=== PATIENT | female | born 1995 | race Caucasian/White ===

== ENCOUNTER 2016-07-13 14:44 | Emergency (ER) | payer OTHER ==
--- NOTE | ~2016-07-13 | CT4 ---
[facility] A Service of [facility] RADIOLOGY TEXT RESULTS PATIENT: TOÑO SAAVEDRA LOCATION: SED : 95 UNIT #: [id number] AGE: [address]: Chandana Flor MD SEX: F ORDER DR: [id number] [place] [id number] E MR#: [id number] Acc #: [id number] NAME: TOOÑ SAAVEDRA : 1995 SEX: F STUDY DATE/TIME: 07/13/2016 17:00 UNIT: SED ROOM: STUDY DESCRIPTION: CT Abd and Pelv Wo Cont Attending Physician: Chandana Flor M.D. Ordering Physician: Chandana Flor M.D. Primary Care Physician: No Primary Care Physician MEDICAL IMAGING REPORT This report is preliminary unless electronic signature is present. EXAM CT abdomen and pelvis, 07/13/2016. INDICATIONS Blood in stool for 1 week. TECHNIQUE Axial images were obtained through the abdomen and pelvis without contrast. Multiplanar reformats were obtained. This CT exam was performed with one or more of the following radiation dose reduction techniques: automatic exposure control, adjustment of mA and/or kV according to patient size, and iterative reconstruction. COMPARISON No comparison. FINDINGS ABDOMEN: The lung bases are clear. Gallbladder is unremarkable. No renal or ureteral stones are seen. There is no hydronephrosis. The unenhanced solid organs are normal. Unopacified GI tract is normal. PELVIS: Urinary bladder is normal. There are no lower ureteral stones. There is sigmoid diverticulosis. The appendix is normal. The remainder of the unopacified GI tract is normal as well. There is a cystic lesion in the left adnexa versus nonopacified small bowel loop. It measures 2 cm short axis. There is some free fluid in the cul-de-sac which is probably physiologic. IMPRESSION 1. No renal or ureteral stones. No hydronephrosis. 2. Grossly normal unopacified GI tract including the appendix. Incidental note is made of mild sigmoid diverticulosis. 3. Free fluid in the cul-de-sac, probably physiologic. [facility] A Service of [facility] RADIOLOGY TEXT RESULTS PATIENT: TOÑO SAAVEDRA LOCATION: [facility] : 95 UNIT #: [id number] AGE: [address]: Chandana Flor MD SEX: F ORDER DR: 4. Left adnexal cyst versus unopacified bowel loop. Dictated by... Romel Mejias Jr., M.D. THIS IS AN ELECTRONICALLY VERIFIED REPORT Romel Mejias Jr., M.D. at 07/14/2016 2:07 PM LIMA/norman TD: 07/13/2016 20:52 JOB #: [id number] MEDICAL IMAGING REPORT Page 1 of 1
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
[~2016-07-13 14:44] MED LIST: KLONOPIN PO; NO MEDICATIONS; ZOLOFT PO
[2016-07-13 16:42] LABS: BASOPHIL% 0.8 % (0-2.5); EOSINOPHIL# 0.1 X10e3 (0-0.7); EOSINOPHIL% 1.8 % (0.0-7.0); HEMATOCRIT 42.9 % (35.0-45.0); LYMPHOCYTE# 1.1 X10e3 (1.0-3.5); LYMPHOCYTE% 20.7 % (17.0-45.0); MEAN CELL VOLUME 88.7 FL (83-96); MEAN CORPUSCULAR HEMOGLOBIN 31.1 PG (28-34); MEAN PLATELET VOLUME 11.4 FL (6.5-11.5); MONOCYTE# 0.3 X10e3 (0-1.0); MONOCYTE% 5.1 % (3.0-12.0); NEUTROPHIL# 3.9 X10e3 (1.5-7.1); NEUTROPHIL% 71.6 % (40-75); PLATELET COUNT 166 X10e3 (140-420); RED BLOOD COUNT 4.83 X10e (3.90-5.30); RED CELL DISTRIBUTION WIDTH 12.6 % (11.0-15.5); WHITE BLOOD COUNT 5.4 X10e3 (4.0-10.5)
[2016-07-13 16:43] LABS: DIFF IND NO
[2016-07-13 17:00] LABS: ALBUMIN SERUM 4.3 g/dL (3.5-5.0); BILIRUBIN, DIRECT 0.3 mg/dL (0.0-0.2); BILIRUBIN,INDIRECT 1.9 mg/dL (0.0-0.9); BILIRUBIN,TOTAL 2.2 mg/dL (0.2-2.0); BUN/CREATININE RATIO 18.75; CREATININE SERUM 0.8 mg/dL (0.6-1.4); GLOM FILT RATE Estimated 105.5 mL/min (>60); POTASSIUM 3.9 mmol/L (3.5-5.1)
== END 2016-07-13 18:00 | disposition home or self-care (01) ==
LOC: SED 14:44
PROVIDERS: Emergency Medicine
DX: K57.32 Diverticulitis of large intestine without perforation or abscess without bleeding (principal); S17.8XXA Crushing injury of other specified parts of neck, initial encounter; F17.210 Nicotine dependence, cigarettes, uncomplicated; F32.9 Major depressive disorder, single episode, unspecified; Z79.899 Other long term (current) drug therapy; X58.XXXA Exposure to other specified factors, initial encounter
CPT/HCPCS: 36415; 70490; 74176; 80048; 80076; 82270; 84703; 85025; 96361; 96374; 96375; 99284; C9113; J1885

== ENCOUNTER 2016-07-23 21:46 | Emergency (ER) | payer OTHER | END 2016-07-23 23:20 | disposition home or self-care (01) | LOC: CED 21:46 | DX: S09.90XA Unspecified injury of head, initial encounter (principal); F10.129 Alcohol abuse with intoxication, unspecified; F17.200 Nicotine dependence, unspecified, uncomplicated; Z79.899 Other long term (current) drug therapy; W18.30XA Fall on same level, unspecified, initial encounter; Y92.009 Unspecified place in unspecified non-institutional (private) residence as the place of occurrence of the external cause | CPT/HCPCS: 99283 ==

== ENCOUNTER 2016-07-23 23:40 | Emergency (ER) | payer OTHER ==
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
== END 2016-07-24 01:05 | disposition home or self-care (01) ==
LOC: SED 23:40
DX: S09.90XA Unspecified injury of head, initial encounter (principal); S01.01XA Laceration without foreign body of scalp, initial encounter; F10.129 Alcohol abuse with intoxication, unspecified; F41.9 Anxiety disorder, unspecified; F17.200 Nicotine dependence, unspecified, uncomplicated; Z79.899 Other long term (current) drug therapy; W18.30XA Fall on same level, unspecified, initial encounter; Y92.009 Unspecified place in unspecified non-institutional (private) residence as the place of occurrence of the external cause
CPT/HCPCS: 12001; 70450; 90715; 99284

== ENCOUNTER 2016-07-29 18:51 | Emergency (ER) | payer OTHER | END 2016-07-29 19:23 | disposition home or self-care (01) | LOC: SED 18:51 | DX: S01.01XD Laceration without foreign body of scalp, subsequent encounter (principal); F32.9 Major depressive disorder, single episode, unspecified; F41.9 Anxiety disorder, unspecified; F17.210 Nicotine dependence, cigarettes, uncomplicated; Z79.899 Other long term (current) drug therapy; X58.XXXD Exposure to other specified factors, subsequent encounter | CPT/HCPCS: 99281 ==

== ENCOUNTER 2016-07-31 21:35 | Emergency (ER) | payer OTHER | END 2016-07-31 22:04 | disposition home or self-care (01) | LOC: SED 21:35 | DX: S01.01XD Laceration without foreign body of scalp, subsequent encounter (principal); F17.210 Nicotine dependence, cigarettes, uncomplicated; Z79.899 Other long term (current) drug therapy; Z88.8 Allergy status to other drugs, medicaments and biological substances | CPT/HCPCS: 99281 ==

== ENCOUNTER 2016-10-31 07:17 | Emergency (ER) | payer OTHER ==
[~2016-10-31] VITALS: Ht 162.6 cm; Wt 49.9 kg
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
[2016-10-31] MEDS ORDERED: NO MEDICATIONS (07:23)
== END 2016-10-31 09:30 | disposition home or self-care (01) ==
LOC: SED 07:17
DX: S13.4XXA Sprain of ligaments of cervical spine, initial encounter (principal); S00.83XA Contusion of other part of head, initial encounter; S60.221A Contusion of right hand, initial encounter; S50.02XA Contusion of left elbow, initial encounter; S20.212A Contusion of left front wall of thorax, initial encounter; F17.210 Nicotine dependence, cigarettes, uncomplicated; F31.9 Bipolar disorder, unspecified; Y09 Assault by unspecified means; Y92.410 Unspecified street and highway as the place of occurrence of the external cause
CPT/HCPCS: 70450; 70486; 71100; 72040; 73080; 73130; 99284